=== PATIENT | male | born 2000 | race African-American/Black ===

== ENCOUNTER 2019-06-14 23:43 | Emergency (ER) | payer OTHER ==
[~2019-06-14] VITALS: Ht 172.7 cm; Wt 61.2 kg
[2019-06-15 00:41] LABS: URINE BILIRUBIN NEGATIVE (Negative); URINE BLOOD 1+ (Negative); URINE CLARITY CLEAR; URINE COLOR YELLOW; URINE GLUCOSE-RANDOM* NEGATIVE (Negative); URINE KETONES TRACE (Negative); URINE LEUKOCYTES-REFLEX NEGATIVE (Negative); URINE NITRITE-REFLEX NEGATIVE (Negative); URINE PROTEIN (DIPSTICK) 1+ (Negative); URINE SPECIFIC GRAVITY >= 1.030 (1.005-1.035); URINE UROBILINOGEN 0.2 E.U./dl (0.2-1.0)
[2019-06-15 01:08] LABS: ABSOLUTE NEUTROPHILS 8.6 thou/uL (1.4-8.2); BASOPHILS 0.2 % (0.0-2.0); EOSINOPHILS 0.2 % (0.0-3.0); HEMATOCRIT 47.3 % (42.0-52.0); HEMOGLOBIN 15.9 gm/dL (14.0-18.0); LYMPHOCYTES 3.8 % (24.0-44.0); MCHC 33.7 g/dL (28.0-37.0); MCV 89.1 fL (80.0-100.0); MONOCYTES 4.2 % (1.0-8.0); PLATELET COUNT 201 thou/uL (150-400); POLYS 91.6 % (36.0-66.0); RDW 13.6 % (10.5-14.5); WBC 9.4 thou/uL (4.0-11.0)
[2019-06-15 01:14] LABS: BACTERIA-REFLEX 1-9 Few /HPF (None Seen); CASTS None Seen /LPF (None Seen); CRYSTALS None Seen /LPF (None Seen); MUCUS >6 Heavy strn/LPF (None Seen); SQUAMOUS 4-10 Moderate /LPF (0-3); URINE RBC 3-10 Few /HPF (0-2); URINE WBC-REFLEX 0-5 Rare /HPF (0-5)
[2019-06-15 01:28] LABS: CALCIUM 9.2 mg/dL (8.5-10.1); CREATININE 0.9 mg/dL (0.7-1.3); POTASSIUM 4.4 mmol/L (3.5-5.1)
[2019-06-15 01:35] LABS: ALBUMIN 4.7 g/dL (3.4-5.0); TOTAL BILIRUBIN 1.4 mg/dL (<0.1-1.0); TOTAL PROTEIN 8.2 g/dL (6.4-8.2)
[2019-06-15] MEDS ORDERED: IMODIUM A-D2 MG PO (02:03)
[2019-06-15] MEDS ORDERED: BENTYL 20 MG TA20 M1 PO (02:03)
[2019-06-15] MEDS ORDERED: ZOFRAN ODT4 MG PO (02:03)
[2019-06-15 02:24] VITALS: BP 101/57
== END 2019-06-15 02:24 | disposition home or self-care (01) ==
LOC: ER 23:43
PROVIDERS: Emergency Medicine
DX: K52.9 Noninfective gastroenteritis and colitis, unspecified (principal); R11.10 Vomiting, unspecified; R19.7 Diarrhea, unspecified

== ENCOUNTER → 2019-06-16 | Outpatient (CLI) | payer OTHER ==
[~2019-06-16] MED LIST: BENTYL 20 MG TA20 M1 PO; IMODIUM A-D2 MG PO; ZOFRAN ODT4 MG PO
== END ==
LOC: CAT 07:29
DX: K85.90 Acute pancreatitis without necrosis or infection, unspecified (principal)